=== PATIENT | male | born 1940 | race Caucasian/White ===

== ENCOUNTER 2018-10-12 00:55 | Inpatient (IN) | payer OTHER, MEDICARE ==
[~2018-10-12] VITALS: Ht 172.7 cm; Wt 92.8 kg
[2018-10-12] MEDS ORDERED: ONDANSETRON 2MG/ML, 2ML ONE (01:25)
[2018-10-12] MEDS ORDERED: MORPHINE SULFATE 4 MG/ML, 1ML ONE ×3 (01:25→02:42)
[2018-10-12] MEDS ORDERED: ONDANSETRON 2MG/ML, 2ML IVPush ONE (01:30)
[2018-10-12] MEDS ORDERED: SODIUM CHLORIDE FLUSH 10ML SYR IVF ONE (01:30)
[2018-10-12] MEDS: MORPHINE SULFATE 4 MG/ML, 1ML IVPush PRN ×2 (01:32→02:14)
--- NOTE | 2018-10-12 01:37 | NUR ---
LABS SENT, PT TO ULTRASOUND NOW
[2018-10-12 01:40] LABS: BASOPHILS # (AUTO) 0.02 x10^3/uL (0-0.1); BASOPHILS % (AUTO) 0 % (0-1); EOSINOPHILS # (AUTO) 0.08 x10^3/uL (0-0.4); EOSINOPHILS % (AUTO) 1 % (1-7); LYMPHOCYTES # (AUTO) 1.13 x10^3/uL (1-3.4); LYMPHOCYTES % (AUTO) 12 % (22-44); MD NO; MEAN CORPUSCULAR HEMOGLOBIN 33.1 pg (27.5-34.5); MEAN CORPUSCULAR HGB CONC 33.6 g/dL (33.2-36.2); MEAN CORPUSCULAR VOLUME 98.7 fL (81-97); MEAN PLATELET VOLUME 8.8 fL (7.4-10.4); MONOCYTES # (AUTO) 0.45 x10^3/uL (0.2-0.8); MONOCYTES % (AUTO) 5 % (2-9); NEUTROPHILS # (AUTO) 7.44 x10^3/uL (1.8-6.8); NEUTROPHILS % (AUTO) 82 % (42-75); PLATELET COUNT 147 x10^3/uL (130-400); RED BLOOD COUNT 4.47 x10^6/uL (4.38-5.82); RED CELL DISTRIBUTION WIDTH 13.6 % (9.4-14.8)
[2018-10-12 01:51] LABS: INTERNATIONAL NORMALIZED RATIO 1.16 (0.93-1.1); PROTHROMBIN TIME 12.2 Seconds (9.6-11.5)
[2018-10-12 01:53] LABS: ALANINE AMINOTRANSFERASE 28 U/L (12-78); ALBUMIN 3.6 g/dL (3.4-5.0); ANION GAP 9 mmol/L (5-15); CHLORIDE 108 mmol/L (98-107); CREATININE 1.01 mg/dL (0.7-1.3)
[2018-10-12 01:55] LABS: ALKALINE PHOSPHATASE 56 U/L (45-117); BILIRUBIN,TOTAL 0.6 mg/dL (0.2-1.0); TOTAL PROTEIN 6.9 g/dL (6.4-8.2)
[2018-10-12 01:58] LABS: TROPONIN I < 0.015 ng/mL (0.000-0.045)
--- NOTE | 2018-10-12 02:05 | NUR ---
PT HAS RETURNED FROM ULTRASUOND. PT RATES HIS PAIN TOLERABLE AT THIS TIME.
[2018-10-12] MEDS ORDERED: DABI150C PO (02:21)
[2018-10-12] MEDS ORDERED: ATOR-2 PO (02:21)
[2018-10-12] MEDS ORDERED: TAMS0.4C2 PO (02:21)
[2018-10-12] MEDS ORDERED: EZET10TA18 PO (02:21)
[2018-10-12] MEDS ORDERED: TRIAMCINOLONE ACE (02:21)
[2018-10-12] MEDS ORDERED: DOCO200C3 PO (02:21)
[2018-10-12] MEDS ORDERED: OMEP-110 PO (02:21)
[2018-10-12] MEDS ORDERED: UBID100C41 PO (02:21)
[2018-10-12] MEDS ORDERED: NITR0.6T4 SL (02:21)
[2018-10-12] MEDS ORDERED: SOTA80TA PO (02:21)
[2018-10-12] MEDS ORDERED: ASPI-496 PO (02:21)
[2018-10-12] MEDS ORDERED: LISI-167 PO (02:21)
--- NOTE | 2018-10-12 02:52 | NUR ---
PT MEDICATED FOR COMPLAINT OF PERSISTENT PAIN. PT TO CT NOW
[2018-10-12] MEDS ORDERED: MORPHINE SULFATE 4 MG/ML, 1ML IVPush ONE (03:00)
[2018-10-12] MEDS ORDERED: OMNIPAQUE 350 MG/ML, 100ML BOTTLE ONE (03:05)
[2018-10-12] MEDS ORDERED: CEFTRIAXONE PMX 1GM/50ML 50 ML IV ONE (03:30)
[2018-10-12] MEDS ORDERED: METRONIDAZOLE PMX 500MG/100ML 100 ML IV ONE (03:30)
[2018-10-12] MEDS ORDERED: CEFTRIAXONE PMX 1GM/50ML 50 ML ONE (03:48)
[2018-10-12] MEDS: METRONIDAZOLE PMX 500MG/100ML 100 ML IV SCH ×3 (04:00→19:58)
[2018-10-12] MEDS ORDERED: ONDANSETRON 2MG/ML, 2ML IVPush PRN (04:00)
[2018-10-12] MEDS: CEFTRIAXONE PMX 1GM/50ML 50 ML IV SCH (04:14)
[2018-10-12] MEDS ORDERED: METRONIDAZOLE PMX 500MG/100ML 100 ML ONE (04:18)
[2018-10-12] MEDS: morphine SULFATE 10 MG/ML, 1ML IVPush PRN ×2 (05:57→10:29)
[2018-10-12] MEDS: SODIUM CHLORIDE 0.9% 1,000 ML IV SCH ×3 (05:59→23:21)
[2018-10-12 06:03] VITALS: BP 124/79
[2018-10-12 07:20] VITALS: BP 86/56
[2018-10-12 07:35] VITALS: BP 95/56
[2018-10-12 08:12] LABS: MICROSCOPIC NOT IND
[2018-10-12 08:18] LABS: CULTURE INDICATED? NO
[2018-10-12 13:39] VITALS: BP 75/42
[2018-10-12 13:45] VITALS: BP 94/56
[2018-10-12] MEDS: CALCIUM CARBONATE 500 MG TAB.CHEW PO PRN (17:30)
[2018-10-12 18:58] VITALS: BP 91/58
[2018-10-13 02:21] VITALS: BP 97/61
[2018-10-13] MEDS: ACETAMINOPHEN 325 MG TABLET PO PRN ×3 (02:41→20:48)
[2018-10-13] MEDS: CEFTRIAXONE PMX 1GM/50ML 50 ML IV SCH (04:14)
[2018-10-13] MEDS: METRONIDAZOLE PMX 500MG/100ML 100 ML IV SCH (05:01)
[2018-10-13 06:00] LABS: ALBUMIN 2.9 g/dL (3.4-5.0); ANION GAP 6 mmol/L (5-15); CALCIUM 8.8 mg/dL (8.5-10.1); CHLORIDE 104 mmol/L (98-107)
[2018-10-13 06:04] LABS: ALANINE AMINOTRANSFERASE 33 U/L (12-78); ALKALINE PHOSPHATASE 45 U/L (45-117); BILIRUBIN,TOTAL 1.3 mg/dL (0.2-1.0); CREATININE 1.52 mg/dL (0.7-1.3); TOTAL PROTEIN 6.1 g/dL (6.4-8.2)
[2018-10-13 06:09] LABS: MEAN CORPUSCULAR HEMOGLOBIN 33.5 pg (27.5-34.5); MEAN CORPUSCULAR HGB CONC 33.8 g/dL (33.2-36.2); MEAN CORPUSCULAR VOLUME 99.1 fL (81-97); PLATELET COUNT 117 x10^3/uL (130-400); RED BLOOD COUNT 3.94 x10^6/uL (4.38-5.82); RED CELL DISTRIBUTION WIDTH 14.6 % (9.4-14.8)
[2018-10-13 06:40] VITALS: BP 117/72
[2018-10-13 08:33] LABS: MD YES
[2018-10-13 08:34] LABS: BAND#(MANUAL) 2.67 x10^3/uL; BANDS%(MANUAL) 14 % (0-7); LYMPH#(MANUAL) 0.76 x10^3/uL (1-3.4); LYMPHS% (MANUAL) 4 % (22-44); MONOS#(MANUAL) 0.76 x10^3/uL (0.3-2.7); MONOS% (MANUAL) 4 % (2-9); SEGS% (MANUAL) 78 % (42-75)
[2018-10-13 08:36] LABS: <PLATELET ESTIMATE> DECREASED; <PLT MORPHOLOGY> NORMAL PLT MORPH; <RBC MORPHOLOGY> NORMAL
[2018-10-13] MEDS ORDERED: MAGNESIUM SULFATE PMX 2GM/50ML 50 ML IV ONE (10:30)
[2018-10-13] MEDS: PIPERACILLIN/TAZO/PMX 3.375GM 50 ML IV SCH ×3 (10:35→22:12)
[2018-10-13 13:10] VITALS: BP 96/61
[2018-10-13] MEDS ORDERED: TAMSULOSIN 0.4 MG CAP.ER.24H ONE (15:57)
[2018-10-13] MEDS: LACTOBACILLUS CHEW TABLET PO SCH (18:03)
[2018-10-13 18:53] VITALS: BP 104/71
[2018-10-13] MEDS ORDERED: TAMSULOSIN 0.4 MG CAP.ER.24H PO SCH (21:00)
[2018-10-14 02:03] VITALS: BP 107/74
[2018-10-14] MEDS: ACETAMINOPHEN 325 MG TABLET PO PRN ×2 (03:20→09:08)
[2018-10-14] MEDS: SODIUM CHLORIDE 0.9% 1,000 ML IV SCH ×2 (04:39→20:52)
[2018-10-14] MEDS: PIPERACILLIN/TAZO/PMX 3.375GM 50 ML IV SCH ×4 (04:40→22:44)
[2018-10-14 05:40] LABS: BASOPHILS # (AUTO) 0.01 x10^3/uL (0-0.1); BASOPHILS % (AUTO) 0 % (0-1); EOSINOPHILS # (AUTO) 0.02 x10^3/uL (0-0.4); EOSINOPHILS % (AUTO) 0 % (1-7); LYMPHOCYTES # (AUTO) 0.78 x10^3/uL (1-3.4); LYMPHOCYTES % (AUTO) 6 % (22-44); MD NO; MEAN CORPUSCULAR HEMOGLOBIN 33.3 pg (27.5-34.5); MEAN CORPUSCULAR HGB CONC 33.8 g/dL (33.2-36.2); MEAN CORPUSCULAR VOLUME 98.5 fL (81-97); MEAN PLATELET VOLUME 8.9 fL (7.4-10.4); MONOCYTES # (AUTO) 0.43 x10^3/uL (0.2-0.8); MONOCYTES % (AUTO) 3 % (2-9); NEUTROPHILS # (AUTO) 12.65 x10^3/uL (1.8-6.8); NEUTROPHILS % (AUTO) 91 % (42-75); PLATELET COUNT 111 x10^3/uL (130-400); RED CELL DISTRIBUTION WIDTH 14.5 % (9.4-14.8)
[2018-10-14 05:48] LABS: ALANINE AMINOTRANSFERASE 26 U/L (12-78); ALBUMIN 2.9 g/dL (3.4-5.0); ANION GAP 8 mmol/L (5-15); CALCIUM 8.6 mg/dL (8.5-10.1); CHLORIDE 107 mmol/L (98-107); CREATININE 1.05 mg/dL (0.7-1.3)
[2018-10-14 05:51] LABS: ALKALINE PHOSPHATASE 54 U/L (45-117); BILIRUBIN,TOTAL 1.5 mg/dL (0.2-1.0); TOTAL PROTEIN 6.5 g/dL (6.4-8.2)
[2018-10-14 06:51] VITALS: BP 109/73
[2018-10-14] MEDS ORDERED: TAMSULOSIN 0.4 MG CAP.ER.24H PO SCH ×3 (09:00→21:00)
[2018-10-14] MEDS: CALCIUM CARBONATE 500 MG TAB.CHEW PO PRN ×2 (09:08→22:42)
[2018-10-14] MEDS: LACTOBACILLUS CHEW TABLET PO SCH ×3 (09:08→17:30)
[2018-10-14 13:39] VITALS: BP 109/76
[2018-10-14 18:51] VITALS: BP 120/74
[2018-10-15 02:35] VITALS: BP 123/76
[2018-10-15] MEDS: PIPERACILLIN/TAZO/PMX 3.375GM 50 ML IV SCH ×2 (04:12→10:30)
[2018-10-15 06:15] LABS: INTERNATIONAL NORMALIZED RATIO 1.03 (0.93-1.1); PROTHROMBIN TIME 10.9 Seconds (9.6-11.5)
[2018-10-15] MEDS ORDERED: BUPIVACAINE/PF 0.25% ONE (06:53)
[2018-10-15] MEDS ORDERED: EPINEPHRINE 1 MG/ML, 1ML ONE (06:53)
[2018-10-15 07:27] VITALS: BP 152/87
[2018-10-15] MEDS: SODIUM CHLORIDE 0.9% 1,000 ML IV SCH (07:41)
[2018-10-15] MEDS: LACTOBACILLUS CHEW TABLET PO SCH ×3 (07:41→16:47)
[2018-10-15] MEDS ORDERED: FENTANYL PF 250 MCG/5ML ONE (11:11)
[2018-10-15] MEDS ORDERED: METOPROLOL 1 MG/ML, 5ML ONE (11:20)
[2018-10-15] MEDS ORDERED: SUCCINYLCHOLINE 20 MG/ML, 10ML ONE (11:20)
[2018-10-15] MEDS ORDERED: ROCURONIUM 10 MG/ML,10ML ONE (11:20)
[2018-10-15] MEDS ORDERED: ONDANSETRON 2MG/ML, 2ML ONE (11:20)
[2018-10-15] MEDS ORDERED: PROPOFOL 10 MG/ML, 20ML ONE (11:20)
[2018-10-15] MEDS ORDERED: PROMETHAZINE 25 MG/ML, 1ML IV PRN (12:00)
[2018-10-15] MEDS ORDERED: METOPROLOL 1 MG/ML, 5ML IV PRN (12:00)
[2018-10-15] MEDS ORDERED: DIPHENHYDRAMINE 50 MG/ML, 1ML IVPush PRN (12:00)
[2018-10-15] MEDS ORDERED: ONDANSETRON ODT 8 MG PO PRN (12:00)
[2018-10-15] MEDS ORDERED: OXYcodone 5 MG/5 ML ORAL.SOL UDC PO PRN (12:00)
[2018-10-15] MEDS ORDERED: ONDANSETRON 2MG/ML, 2ML IV PRN (12:00)
[2018-10-15] MEDS ORDERED: PROMETHAZINE 25 MG SUPP PR PRN (12:00)
[2018-10-15] MEDS ORDERED: MORPHINE SULFATE 4 MG/ML, 1ML IVPush PRN (12:00)
[2018-10-15] MEDS ORDERED: EPHEDRINE 50 MG/ML, 1ML IVPush PRN (12:00)
[2018-10-15] MEDS ORDERED: MIDAZOLAM 1 MG/ML, 2ML IV PRN (12:00)
[2018-10-15] MEDS ORDERED: PROMETHAZINE 12.5 MG SUPP PR PRN (12:00)
[2018-10-15] MEDS ORDERED: hydrALAzine 20 MG/ML, 1ML IV PRN (12:00)
[2018-10-15] MEDS ORDERED: FENTANYL PF 100 MCG/2ML ONE (12:31)
[2018-10-15] MEDS ORDERED: HYDROmorphone 1 MG/ML, 1ML ONE (12:31)
[2018-10-15] MEDS ORDERED: OXYcodone 5 MG/5 ML ORAL.SOL UDC ONE (12:32)
[2018-10-15] MEDS: FENTANYL PF 100 MCG/2ML IV PRN ×2 (12:34→12:46)
[2018-10-15 13:46] VITALS: BP 123/80
[2018-10-15] MEDS: morphine SULFATE 10 MG/ML, 1ML IVPush PRN (14:33)
[2018-10-15] MEDS ORDERED: ACID1TAB7 PO (14:48)
[2018-10-15] MEDS ORDERED: ONDA4TAB13 SL (14:48)
[2018-10-15] MEDS ORDERED: POLY17PO5 PO (14:48)
[2018-10-15] MEDS ORDERED: TRAM50TA2 PO (14:48)
[2018-10-15] MEDS ORDERED: HYDR-3622 PO (14:48)
[2018-10-15] MEDS ORDERED: CALC200T24 PO (14:48)
[2018-10-15] MEDS ORDERED: HYDROcodone/APAP 10/325 MG TABLET PO PRN (16:30)
[2018-10-15 17:18] VITALS: BP 100/65
== END 2018-10-15 18:12 | disposition home or self-care (01) | DRG 853 ==
LOC: SUATTDRO 03:42 → ED 03:43 → EDIP 03:50 → 4NOR 05:20
PROVIDERS: ADMIT Hospitalist; ATTEND Hospitalist
PROC: 0FT44ZZ Resection of Gallbladder, Percutaneous Endoscopic Approach (ICD-10-PCS; principal; 2018-10-15 11:15)
DX: A41.9 Sepsis, unspecified organism (principal); N17.0 Acute kidney failure with tubular necrosis; D68.69 Other thrombophilia; K80.12 Calculus of gallbladder with acute and chronic cholecystitis without obstruction; E78.00 Pure hypercholesterolemia, unspecified; E78.5 Hyperlipidemia, unspecified; I10 Essential (primary) hypertension; I25.10 Atherosclerotic heart disease of native coronary artery without angina pectoris; K21.9 Gastro-esophageal reflux disease without esophagitis; I48.91 Unspecified atrial fibrillation; N40.0 Benign prostatic hyperplasia without lower urinary tract symptoms; Z79.01 Long term (current) use of anticoagulants; Z79.02 Long term (current) use of antithrombotics/antiplatelets; Z95.1 Presence of aortocoronary bypass graft; Z88.8 Allergy status to other drugs, medicaments and biological substances
CPT/HCPCS: 36415; 71045; 74177; 74181; 76700; 80053; 81003; 83690; 83735; 84100; 84484; 85025; 85610; 85730; 87040; 88304; 93005; C1729; G0378; J0171; J0696; J2405; J2543; J2704; J3010; J3490; Q9967; C1760; J0330; J2270; J3475; J7030

== ENCOUNTER 2018-11-16 10:05 | Day surgery (SDC) | payer MEDICARE, OTHER ==
[~2018-11-16] VITALS: Ht 172.7 cm; Wt 85.0 kg
[~2018-11-16 10:05] MED LIST: ACID1TAB7 PO; ASPI-496 PO; ATOR-2 PO; CALC200T24 PO; DABI150C PO; DOCO200C3 PO; EZET10TA18 PO; HYDR-3622 PO; LISI-167 PO; NITR0.6T4 SL; OMEP-110 PO; ONDA4TAB13 SL; POLY17PO5 PO; SOTA80TA PO; TAMS0.4C2 PO; TRAM50TA2 PO; TRIAMCINOLONE ACE; UBID100C41 PO
[2018-11-16 10:31] VITALS: BP 135/81
[2018-11-16] MEDS ORDERED: DOCO200C7 PO (10:46)
[2018-11-16 11:32] LABS: ANION GAP 5 mmol/L (5-15); CALCIUM 8.8 mg/dL (8.5-10.1); CHLORIDE 109 mmol/L (98-107)
[2018-11-16 11:34] LABS: CREATININE 1.03 mg/dL (0.7-1.3)
[2018-11-16] MEDS ORDERED: MIDAZOLAM 1 MG/ML, 5ML ONE (11:39)
[2018-11-16] MEDS ORDERED: FENTANYL PF 100 MCG/2ML ONE (11:40)
== END 2018-11-16 15:09 | disposition home or self-care (01) ==
LOC: CACL 10:05
PROVIDERS: ATTEND Internal Medicine Cardiovascular Disease
DX: I48.0 Paroxysmal atrial fibrillation (principal); E78.2 Mixed hyperlipidemia; I10 Essential (primary) hypertension; Z98.890 Other specified postprocedural states; Z96.653 Presence of artificial knee joint, bilateral; Z72.89 Other problems related to lifestyle; Z79.82 Long term (current) use of aspirin; Z95.5 Presence of coronary angioplasty implant and graft; Z95.1 Presence of aortocoronary bypass graft
CPT/HCPCS: 36415; 80048; 92960; 93005; J2250; J3010

== ENCOUNTER 2019-04-05 13:17 | Outpatient (CLI) | payer MEDICARE, OTHER ==
[~2019-04-05 13:17] MED LIST changes: +DOCO200C7 PO; -EZET10TA18 PO; +EZET10TA70 PO; +REGADENOSON 0.4 MG/5 ML SYRINGE ONE
== END 2019-04-05 23:59 | disposition home or self-care (01) ==
LOC: CVU 13:17
PROVIDERS: ATTEND Internal Medicine Cardiovascular Disease
DX: I65.23 Occlusion and stenosis of bilateral carotid arteries (principal); I10 Essential (primary) hypertension; I48.0 Paroxysmal atrial fibrillation
CPT/HCPCS: 93880; J2785

== ENCOUNTER 2019-04-27 06:41 | Outpatient (CLI) | payer MEDICARE, OTHER | END 2019-04-27 23:59 | disposition home or self-care (01) | LOC: CVU 06:41 | PROVIDERS: ATTEND Internal Medicine Cardiovascular Disease | DX: I65.23 Occlusion and stenosis of bilateral carotid arteries (principal); I10 Essential (primary) hypertension; E78.5 Hyperlipidemia, unspecified; I25.10 Atherosclerotic heart disease of native coronary artery without angina pectoris | CPT/HCPCS: 93880 ==

== ENCOUNTER 2020-04-12 07:52 | Emergency (ER) | payer MEDICARE, OTHER ==
[~2020-04-12] VITALS: Ht 172.7 cm; Wt 92.0 kg
[~2020-04-12 07:52] MED LIST changes: -REGADENOSON 0.4 MG/5 ML SYRINGE ONE
[2020-04-12] MEDS ORDERED: PROPOFOL 10 MG/ML, 20ML ONE (08:18)
[2020-04-12] MEDS ORDERED: MORPHINE SULFATE 4 MG/ML, 1ML ONE (08:18)
[2020-04-12] MEDS ORDERED: ONDANSETRON 2MG/ML, 2ML ONE (08:18)
[2020-04-12] MEDS ORDERED: MORPHINE SULFATE 4 MG/ML, 1ML IVPush PRN (08:30)
[2020-04-12] MEDS ORDERED: SODIUM CHLORIDE FLUSH 10ML SYR IVF ONE (08:30)
[2020-04-12] MEDS ORDERED: PROPOFOL 10 MG/ML, 20ML IVPush ONE (08:30)
[2020-04-12] MEDS ORDERED: ONDANSETRON 2MG/ML, 2ML IVPush ONE (08:30)
--- NOTE | 2020-04-12 08:39 | NUR ---
Patient comes in today after dislocating his left shoulder while putting his shirt on this morning. patient's son-in-law at bedside holding patient's left arm up, patient c/o 11/10 shoulder pain. 20 gauge IV started R-AC, 4 mg IV zofran and 4 mg IV morphine administered. Patient placed on 2 LPM NC. Patient set up for procedural sedation, consent signed. Provider notified.
--- NOTE | 2020-04-12 09:27 | NUR ---
PATIENT PREPPED FOR PROCEDURE. CONSENT OBTAINED AND SIGNED BY PATIENT AND PROVIDER. 80 MG PROPOFOL ADMINISTERED, L-SHOULDER REDUCED WITH NO ISSUES. PATIENT AWAKE, [id number], LATEST VITALS: FO=749/81, HR=68, RR=15, AND O2=96% ON 4 LPM NC. SHOULDER SLING IN PLACE.
--- NOTE | 2020-04-12 10:18 | NUR ---
ERMD AT BEDSIDE FOR POST REDUCTION EVALUATION.
[2020-04-12 10:52] VITALS: BP 118/88
--- NOTE | 2020-04-12 10:53 | NUR ---
Patient given discharge instructions and they have confirmed that they understand the instructions. Patient ambulatory with steady gait.
== END 2020-04-12 10:54 | disposition home or self-care (01) ==
LOC: ED 09:52
DX: S43.085A Other dislocation of left shoulder joint, initial encounter (principal); X58.XXXA Exposure to other specified factors, initial encounter; Y93.89 Activity, other specified; Y92.009 Unspecified place in unspecified non-institutional (private) residence as the place of occurrence of the external cause; Y99.8 Other external cause status
CPT/HCPCS: 23650; 73020; 73030; 96374; 96375; 99285; J2270; J2405

== ENCOUNTER → 2020-04-17 | Outpatient (CLI) | payer MEDICARE, OTHER | END | disposition home or self-care (01) | LOC: CVU 08:25 | PROVIDERS: ATTEND Internal Medicine Cardiovascular Disease | DX: I08.8 Other rheumatic multiple valve diseases (principal); I48.0 Paroxysmal atrial fibrillation | CPT/HCPCS: 93306 ==

== ENCOUNTER 2020-05-10 07:27 | Day surgery (SDC) | payer MEDICARE, OTHER ==
[2020-05-10] MEDS ORDERED: SOTA160T PO (08:02)
[2020-05-10] MEDS ORDERED: APIX5TAB PO (08:04)
[2020-05-10 08:36] LABS: ANION GAP 5 mmol/L (5-15); CALCIUM 9.3 mg/dL (8.5-10.1); CHLORIDE 108 mmol/L (98-107); CREATININE 1.02 mg/dL (0.7-1.3)
[2020-05-10] MEDS ORDERED: PROPOFOL 10 MG/ML, 20ML ONE (10:13)
== END 2020-05-10 11:29 | disposition home or self-care (01) ==
LOC: CACL 07:27
PROVIDERS: ATTEND Internal Medicine Cardiovascular Disease
DX: I48.91 Unspecified atrial fibrillation (principal); I25.10 Atherosclerotic heart disease of native coronary artery without angina pectoris; I10 Essential (primary) hypertension; Z79.01 Long term (current) use of anticoagulants; Z79.899 Other long term (current) drug therapy; Z90.49 Acquired absence of other specified parts of digestive tract; Z95.5 Presence of coronary angioplasty implant and graft; Z96.653 Presence of artificial knee joint, bilateral; Z96.641 Presence of right artificial hip joint; Z98.890 Other specified postprocedural states; Z82.49 Family history of ischemic heart disease and other diseases of the circulatory system
CPT/HCPCS: 36415; 80048; 92960; 93005; J2704

== ENCOUNTER 2020-11-17 05:56 | Day surgery (SDC) | payer MEDICARE, OTHER ==
[~2020-11-17] VITALS: Ht 170.2 cm; Wt 92.0 kg
[~2020-11-17 05:56] MED LIST changes: +APIX5TAB PO; +SOTA160T PO
[2020-11-17] MEDS ORDERED: TRAZ-175 PO (06:25)
[2020-11-17] MEDS ORDERED: OMEP-110 PO (06:25)
[2020-11-17] MEDS ORDERED: CHOL10003 PO (06:25)
[2020-11-17 08:04] LABS: BASOPHILS % (AUTO) 1 % (0-1); EOSINOPHILS % (AUTO) 1 % (1-7); LYMPHOCYTES % (AUTO) 16 % (22-44); MEAN CORPUSCULAR HEMOGLOBIN 31.6 pg (27.5-34.5); MEAN PLATELET VOLUME 8.6 fL (7.4-10.4); MONOCYTES % (AUTO) 7 % (2-9); NEUTROPHILS % (AUTO) 75 % (42-75); PLATELET COUNT 109 x10^3/uL (130-400); RED BLOOD COUNT 4.58 x10^6/uL (4.38-5.82); RED CELL DISTRIBUTION WIDTH 15.3 % (9.4-14.8)
[2020-11-17 08:05] LABS: MD NO
[2020-11-17 08:13] LABS: ANION GAP 8 mmol/L (5-15); CALCIUM 8.9 mg/dL (8.5-10.1); CHLORIDE 108 mmol/L (98-107); CREATININE 1.07 mg/dL (0.7-1.3)
[2020-11-17 08:14] LABS: INTERNATIONAL NORMALIZED RATIO 1.16 (0.93-1.1); PROTHROMBIN TIME 12.4 Seconds (9.6-11.5)
== END 2020-11-17 08:27 | disposition home or self-care (01) ==
LOC: CACL 05:56
PROVIDERS: ATTEND Internal Medicine Cardiovascular Disease
DX: I48.0 Paroxysmal atrial fibrillation (principal); Z53.8 Procedure and treatment not carried out for other reasons; I25.10 Atherosclerotic heart disease of native coronary artery without angina pectoris; I10 Essential (primary) hypertension; E78.5 Hyperlipidemia, unspecified; Z88.8 Allergy status to other drugs, medicaments and biological substances; Z79.01 Long term (current) use of anticoagulants; Z79.899 Other long term (current) drug therapy; Z98.890 Other specified postprocedural states; Z72.89 Other problems related to lifestyle
CPT/HCPCS: 36415; 80048; 85025; 85610; 85730; 93005

== ENCOUNTER 2020-11-21 11:00 | Day surgery (SDC) | payer MEDICARE, OTHER ==
[~2020-11-21] VITALS: Ht 170.2 cm; Wt 90.9 kg
[~2020-11-21 11:00] MED LIST changes: +CHOL10003 PO; +TRAZ-175 PO
[2020-11-21] MEDS ORDERED: SODIUM CHLORIDE 0.9% 1,000 ML IV SCH (12:00)
[2020-11-21 12:29] VITALS: BP 140/72
[2020-11-21] MEDS ORDERED: FENTANYL PF 100 MCG/2ML ONE (12:52)
[2020-11-21] MEDS ORDERED: LIDOCAINE 2%, 20ML ONE (12:52)
[2020-11-21] MEDS ORDERED: VERAPAMIL 2.5 MG/ML, 2ML ONE (12:52)
[2020-11-21] MEDS ORDERED: MIDAZOLAM 1 MG/ML, 5ML ONE (12:52)
[2020-11-21] MEDS ORDERED: BIVALIRUDIN 250 MG ONE (12:52)
[2020-11-21] MEDS ORDERED: HEPARIN 1,000 UNITS/ML, 10ML ONE (12:52)
== END 2020-11-21 16:39 | disposition home or self-care (01) ==
LOC: CACL 11:00
PROVIDERS: ATTEND Internal Medicine Cardiovascular Disease
DX: R94.39 Abnormal result of other cardiovascular function study (principal); I25.10 Atherosclerotic heart disease of native coronary artery without angina pectoris; I25.82 Chronic total occlusion of coronary artery; I25.83 Coronary atherosclerosis due to lipid rich plaque; I10 Essential (primary) hypertension; E78.5 Hyperlipidemia, unspecified; Z88.8 Allergy status to other drugs, medicaments and biological substances; Z95.5 Presence of coronary angioplasty implant and graft
CPT/HCPCS: 93459; 99156; C1760; C1769; C1894; J0583; J1644; J2250; J3010; Q9967